=== PATIENT | female | born 1955 | race Two or more races ===

== ENCOUNTER 2017-08-30 08:43 | Outpatient (CLI) | payer OTHER | END 2017-08-30 08:51 | disposition home or self-care (01) | LOC: RAD 08:43 | DX: M75.50 Bursitis of unspecified shoulder (principal); M25.512 Pain in left shoulder ==

== ENCOUNTER → 2018-03-21 13:30 | Outpatient (CLI) | payer OTHER | END | disposition home or self-care (01) | LOC: RAD 13:30 | DX: M75.41 Impingement syndrome of right shoulder (principal) ==

== ENCOUNTER 2019-05-12 08:44 | Outpatient (CLI) | payer OTHER | END 2019-05-12 08:50 | disposition home or self-care (01) | LOC: MAMO-SONO 08:44 | DX: Z12.31 Encounter for screening mammogram for malignant neoplasm of breast (principal); Z87.898 Personal history of other specified conditions; N60.11 Diffuse cystic mastopathy of right breast; N60.12 Diffuse cystic mastopathy of left breast ==

== ENCOUNTER 2019-05-17 07:59 | Outpatient (CLI) | payer OTHER | END 2019-05-17 08:13 | disposition home or self-care (01) | LOC: TOM 07:59 | DX: R19.5 Other fecal abnormalities (principal); Z79.01 Long term (current) use of anticoagulants; K56.600 Partial intestinal obstruction, unspecified as to cause ==

== ENCOUNTER 2019-07-31 11:28 | Outpatient (CLI) | payer OTHER | END 2019-07-31 11:30 | disposition home or self-care (01) | LOC: RAD 11:28 | DX: M48.061 Spinal stenosis, lumbar region without neurogenic claudication (principal) ==

== ENCOUNTER 2021-02-17 08:25 | Outpatient (CLI) | payer OTHER | END 2021-02-17 10:15 | disposition home or self-care (01) | LOC: RAD 08:25 | PROVIDERS: ATTEND Psychiatry & Neurology Psychiatry | DX: M79.672 Pain in left foot (principal) ==

== ENCOUNTER 2021-02-26 11:42 | Outpatient (CLI) | payer OTHER | END 2021-02-26 12:59 | disposition home or self-care (01) | LOC: RAD 11:42 | DX: M17.11 Unilateral primary osteoarthritis, right knee (principal) ==

== ENCOUNTER 2023-04-24 07:15 | Outpatient (CLI) | payer OTHER | END 2023-04-24 07:32 | disposition home or self-care (01) | LOC: MAMO-SONO 07:15 | DX: Z12.39 Encounter for other screening for malignant neoplasm of breast (principal); N64.9 Disorder of breast, unspecified; Z12.31 Encounter for screening mammogram for malignant neoplasm of breast ==